=== PATIENT | female | born 1970 | race Caucasian/White ===

== ENCOUNTER 2019-01-15 21:29 | Emergency (ER) | payer MEDICAID, SELFPAY ==
--- NOTE | 2019-01-15 22:11 | RAD ---
Right elbow 4 views HISTORY: Right elbow injury. FINDINGS: Radiocapitellar alignment is maintained. No acute fracture, dislocation, or fluid distentio n of the joint capsule are evident. A tiny well-corticated rounded calcific density projects just medial to the base of the coronoid process of the proximal ulna. It is of doubtful clinical significa nce given the lack of joint fluid. IMPRESSION: No acute osseous abnormalities are demonstrated.
[2019-01-15] MEDS ORDERED: Ketorolac Tromethamine 30 MG/ML VIAL ONE (22:57)
== END 2019-01-15 23:15 | disposition home or self-care (01) ==
LOC: ERS 21:29
DX: M77.11 Lateral epicondylitis, right elbow (principal); F41.9 Anxiety disorder, unspecified; F17.210 Nicotine dependence, cigarettes, uncomplicated
CPT/HCPCS: J1885

== ENCOUNTER 2019-06-15 22:54 | Emergency (ER) | payer SELFPAY ==
[2019-06-15] MEDS ORDERED: Ketorolac Tromethamine 30 MG/ML VIAL ONE (23:29)
== END 2019-06-15 23:49 | disposition home or self-care (01) ==
LOC: ERS 22:54
DX: H60.502 Unspecified acute noninfective otitis externa, left ear (principal); H65.92 Unspecified nonsuppurative otitis media, left ear; H72.91 Unspecified perforation of tympanic membrane, right ear; F41.9 Anxiety disorder, unspecified; F17.210 Nicotine dependence, cigarettes, uncomplicated
CPT/HCPCS: 96372; 99282; J1885

== ENCOUNTER 2020-05-23 17:26 | Emergency (ER) | payer SELFPAY ==
[2020-05-23 19:20] LABS: #Eosinphils 0.1 thou/uL (0.0-0.7); #Lymphocytes 0.7 thou/uL (1.20-3.40); #Monocytes 0.7 thou/uL (0.11-0.59); #Neutrophils 3.4 thou/uL (1.40-6.50); %Eosinophils 1.1 % (0.0-10.0); %Lymphocytes 14.4 % (21.0-51.0); %Monocytes 13.9 % (0.0-10.0); %Neutrophils 70.7 % (42.0-75.0); Hemoglobin 15.4 g/dL (12.0-16.0); Mean Corpuscular HGB CONC 33.7 g/dL (32.0-36.0); Mean Corpuscular Hemoglobin 32.9 pg (27.0-31.0); Mean Corpuscular Volume 97.6 fL (78.0-98.0); Mean Platelet Volume 6.7 fL (7.4-10.4); Platelet Count 268 thou/uL (130-400); RBC Distribution Width 11.6 % (11.5-14.5); Red Blood Cell (RBC) Count 4.68 mill/uL (4.20-5.40); White Blood Cell (WBC) Count 4.9 thou/uL (4.8-10.8)
[2020-05-23 19:43] LABS: ALT (SGPT) 23 U/L (8-55); AST (SGOT) 23 U/L (5-34); Albumin 4.4 g/dL (3.5-5.0); Alkaline Phosphatase 82 U/L (40-110); Anion Gap 12 mmol/L (10-20); BUN (Urea Nitrogen) 10 mg/dL (7.0-18.7); Bilirubin, Total 0.2 mg/dL (0.2-1.2); CK (CPK) 120 U/L (29-168); Calc. Creatinine Clearance 0 mL/min (70-130); Calcium 9.5 mg/dL (7.8-10.44); Carbon Dioxide 25 mmol/L (22-29); Chloride 105 mmol/L (98-107); Globulin 3.3 g/dL (2.4-3.5); Glucose 95 mg/dL (70-105); Lipase 96 U/L (8-78); Protein, Total 7.7 g/dL (6.0-8.3); Sodium 138 mmol/L (136-145)
[2020-05-23] MEDS ORDERED: Ketorolac Tromethamine 30 MG/ML VIAL ONE (20:29)
== END 2020-05-23 21:34 | disposition home or self-care (01) ==
LOC: ERS 17:26
DX: M62.838 Other muscle spasm (principal); F17.210 Nicotine dependence, cigarettes, uncomplicated
CPT/HCPCS: 71045; 80053; 82550; 83690; 84484; 85025; 93005; 96372; J1885

== ENCOUNTER 2020-11-09 18:06 | Emergency (ER) | payer SELFPAY ==
[2020-11-09] MEDS ORDERED: Ketorolac Tromethamine 30 MG/ML VIAL ONE (18:42)
== END 2020-11-09 20:07 | disposition home or self-care (01) ==
LOC: ERS 18:06
DX: G56.02 Carpal tunnel syndrome, left upper limb (principal); F17.210 Nicotine dependence, cigarettes, uncomplicated
CPT/HCPCS: 96372; J1885

== ENCOUNTER 2021-07-23 19:46 | Emergency (ER) | payer SELFPAY | END 2021-07-23 21:52 | disposition left against medical advice (07) | LOC: ERS 19:46 | DX: Z53.21 Procedure and treatment not carried out due to patient leaving prior to being seen by health care provider (principal) ==

== ENCOUNTER 2022-07-07 15:36 | Outpatient (CLI) | payer OTHER | END 2022-07-07 15:37 | disposition home or self-care (01) | LOC: BICRAD 15:36 | PROVIDERS: ATTEND Family Medicine | DX: R05.9 Cough, unspecified (principal) | CPT/HCPCS: 71046 ==